=== PATIENT | male | born 1940 | race Caucasian/White ===

== ENCOUNTER → 2016-11-27 | Day surgery (SDC) | payer OTHER ==
[~2016-11-27] MED LIST: BUPIVACAINE/EPINEPHRINE 0.25% 50 ML VIAL ONE; LACTATED RINGER'S 1000 ML INJ 1,000 ML ONE; MIDAZOLAM HCL 2 MG/2 ML VIAL ONE; PROPOFOL 200 MG/20 ML AMP IV ONE
--- NOTE | 2016-11-27 11:08 | TN ---
cc: WISAM ATKINSON M.D. DATE OF SURGERY: 11/27/2016 PREOPERATIVE DIAGNOSIS Symptomatic 1 cm nodule left elbow. POSTOPERATIVE DIAGNOSIS Symptomatic 1 cm nodule left elbow. PROCEDURE PERFORMED Wide local excision symptomatic 1 cm nodule left elbow. SURGEON Wisam Atkinson MD ANESTHESIA TIVA with local. COMPLICATIONS None. INDICATION FOR PROCEDURE Mr. Vu is a very pleasant 76-year-old gentleman who had an extremely tender, firm nodule on the tip of his left elbow. Whenever he would put it down to rest it, it would cause exquisite shooting pain in his left arm. He was seen and evaluated in the office. On physical exam he had a very tender nodule. Basically he would not even allow you to touch it because it was so tender. Because of its location near the olecranon bursa I recommend this be excised in the operating room. Risks and benefits of wide local excision was discussed with him and he was agreeable. DETAILS OF PROCEDURE The patient was identified, brought to the operating room and placed supine on the operating table. After adequate IV sedation was achieved the left elbow was prepped and draped in standard surgical fashion. The nodule had been marked in the preoperative holding area by myself and the patient. 0.25% Marcaine was injected in the operative field. Using elliptical skin incision, the overlying skin and subcutaneous tissue was dissected with sharp dissection. The nodule was excised in toto with a margin of normal tissue around it. We did not enter the bursa of the left elbow. Specimen was sent to pathology for analysis. Wound was then irrigated and closed in two layers using a 3-0 and 4-0 Vicryl. Sterile dressings were applied and the patient was awakened and brought to recovery in stable condition. MD FRANNY Fritz/NANCYL /10:54 AM /11:00 AM
== END | disposition home or self-care (01) ==
LOC: ESDC 08:52
PROVIDERS: ATTEND Surgery Trauma Surgery
DX: D23.9 Other benign neoplasm of skin, unspecified (principal)
CPT/HCPCS: 00400; 24075; 88305; J2250; J3010; J7120